=== PATIENT | female | born 1945 | race Hispanic/Latino ===

== ENCOUNTER 2021-04-14 16:44 | Emergency (ER) | payer MEDICARE ==
[~2021-04-14] VITALS: Ht 147.3 cm; Wt 93.0 kg
[~2021-04-14 16:44] MED LIST: ALLO100T PO; AMLO5TAB4 PO; ASCO500C18 PO; ASPI-1197 PO; ATOR20TA65 PO; CINA30TA5 PO; FERS325 PO; FURO20TA4 PO; HYDR-4154 PO; INSLAN SQ; LEVO25CA4 PO; SYRI-1628 MC; TOBR5DRO7 OP
[2021-04-14 16:46] VITALS: BP 123/46
[2021-04-14 19:05] VITALS: BP 172/60
[2021-04-14 19:22] VITALS: BP 150/60
[2021-04-14 20:33] VITALS: BP 136/70
== END 2021-04-14 20:46 | disposition home or self-care (01) ==
LOC: EDH 16:44
DX: I10 Essential (primary) hypertension (principal); F41.9 Anxiety disorder, unspecified; A49.1 Streptococcal infection, unspecified site; F45.8 Other somatoform disorders; E11.9 Type 2 diabetes mellitus without complications; Z79.82 Long term (current) use of aspirin; Z79.899 Other long term (current) drug therapy
CPT/HCPCS: 99281